=== PATIENT | male | born 1985 | race Caucasian/White ===

== ENCOUNTER → 2018-11-21 11:09 | Outpatient (CLI) | payer OTHER, SELFPAY ==
--- NOTE | 2018-11-21 | DI.RAD.S_ITS ---
PROCEDURE: FL SHOULDER INJECTION MR/CT LT INDICATIONS: PAIN IN LEFT SHOULDER TECHNIQUE: The indications, alternatives, benefits, risks, and complications of the procedure were explained to the patient. Written informed consent was obtained and placed in the chart. The shoulder was examined fluoroscopically and a site for needle placement chosen for entry into the glenohumeral joint from an anterior approach. The skin was prepped and draped in a sterile fashion, and 1% lidocaine infiltrated from skin down to joint capsule. A spinal needle was inserted into the glenohumeral joint, and a small amount of iodinated contrast media injected to confirm intra-articular placement of the needle tip. This was followed by approximately 12 mL dilute solution of a gadolinium containing MR contrast agent. The needle was removed and a dressing was applied. The patient was given postprocedural instructions and sent to the MR suite for MR imaging. FINDINGS: A single fluoroscopic spot image demonstrates intra-articular location of injected iodinated contrast. IMPRESSION: Successful fluoroscopically guided administration of dilute Gadolinium solution into the shoulder joint for MR arthrogram. Dictated by: Galdino Pabon M.D. on 11/21/2018 at 13:30 Approved by: Galdino Pabon M.D. on 11/21/2018 at 13:31
--- NOTE | 2018-11-21 | DI.MRI.S_ITS ---
PROCEDURE: MR SHOULDER LT W CON INDICATIONS: PAIN IN LEFT SHOULDER TECHNIQUE: After the administration of 12 mL of dilute intra-articular Gadolinium contrast, oblique coronal T1 and T2 spin echo with fat saturation, oblique sagittal T1 spin echo with and without fat saturation, oblique sagittal T2 fast spin echo with fat saturation, axial T1 spin echo with fat saturation through the shoulder. COMPARISON: None. FINDINGS: Image quality: Excellent. Rotator cuff: Tendinosis and low-grade articular surface partial-thickness tear involving distal supraspinatus near its insertion on the humeral head extending to musculotendinous junction. Tendinosis and low-grade bursal surface partial-thickness involving distal infraspinatus at its insertion on the humeral head extending to musculotendinous junction is noted. Distal subscapularis tendon is intact. No full-thickness rotator cuff tendon rupture. No significant rotator cuff muscle atrophy on sagittal images. Bones and bursae: No bone marrow contusions or fractures. No acromioclavicular joint degeneration. The acromion demonstrates conventional anatomy, without an os acromiale. Capsule and soft tissues: There is contour irregularity in contrast extension involving inferior posterior labrum at 6 to 7:00 position suggestive of focal posterior-inferior labral tear. Superior labrum is intact. The glenohumeral ligaments appear intact. The long head of the biceps tendon demonstrates normal location and morphology. The rotator interval appears normal, without fibrosis. The coracohumeral ligament is of normal thickness. No intra-articular bodies. IMPRESSION: 1. Finding is suggestive of focal posterior-inferior labral tear at 6 to 7:00 position. 2. Tendinosis and low-grade articular surface partial-thickness tear involving distal supraspinatus extending to musculotendinous junction. Tendinosis and low-grade bursal surface partial-thickness involving distal infraspinatus at its insertion on the humeral head extending to musculotendinous junction. No full-thickness rotator cuff tendon rupture. Dictated by: Sabino Raymond M.D. on 11/21/2018 at 13:09 Approved by: Sabino Raymond M.D. on 11/21/2018 at 13:22
== END ==
PROVIDERS: Visit Provider Family Medicine
DX: M25.512 Pain in left shoulder (principal)
CPT/HCPCS: 23350; 73222; 77002

== ENCOUNTER → 2021-12-17 13:13 | Outpatient (CLI) | payer OTHER, SELFPAY | DX: M47.892 Other spondylosis, cervical region (principal); Z53.20 Procedure and treatment not carried out because of patient's decision for unspecified reasons ==

== ENCOUNTER → 2021-12-25 10:49 | Outpatient (CLI) | payer OTHER, SELFPAY ==
--- NOTE | 2021-12-25 | DI.MRI.S_ITS ---
PROCEDURE: MR CERVICAL SPINE WO CON INDICATIONS: Other spondylosis, cervical region. Pain. TECHNIQUE: Noncontrast sagittal T1 spin echo and T2 fast spin echo, sagittal STIR, foraminal oblique sagittal T2 fast spin echo, and axial gradient echo or T2 fast spin echo through the cervical spine. COMPARISON: None. FINDINGS: Image quality: Excellent. Alignment and Curvature: There is normal bony alignment. Bone Marrow: Marrow demonstrates normal overall signal. Spinal Cord: Visualized spinal cord has normal size and signal. No cerebellar tonsillar herniation. Paraspinous Soft Tissues: No paravertebral masses. Prevertebral soft tissues are normal in thickness. C2-C3: Normal appearance. C3-C4: Normal appearance. C4-C5: Disc height is preserved. Small posterior disc osteophyte complex results in mild central stenosis. No foraminal stenosis. C5-C6: Disc height is preserved. Small posterior disc osteophyte complex results in mild central stenosis. No foraminal stenosis. C6-C7: Normal appearance. C7-T1: Normal appearance. 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 on 12/25/2021 at 16:25
== END ==
DX: M47.892 Other spondylosis, cervical region (principal); M48.02 Spinal stenosis, cervical region
CPT/HCPCS: 72141

== ENCOUNTER → 2022-12-30 12:26 | Outpatient (CLI) | payer OTHER, SELFPAY ==
--- NOTE | 2022-12-30 12:29 | DI.MRI.S_ITS ---
PROCEDURE: MR CERVICAL SPINE WO CON INDICATIONS: Radiculopathy, cervical region TECHNIQUE: Noncontrast sagittal T1 spin echo and T2 fast spin echo, sagittal STIR, foraminal oblique sagittal T2 fast spin echo, and axial gradient echo or T2 fast spin echo through the cervical spine. COMPARISON: [facility], , MR CERVICAL SPINE WO CON, 12/25/2021, 11:33. FINDINGS: Normal cervical spine vertebral body height and alignment. No suspicious focal marrow signal abnormality or bone marrow edema. Normal morphology and signal intensity of the cervical cord. There is no syrinx. Prevertebral and paraspinous soft tissues are normal. No spinal canal stenosis at any level in the cervical spine. No significant degenerative changes identified. IMPRESSION: Normal cervical spine MRI. Dictated by: Dick Romo M.D. on 12/30/2022 at 21:39 Approved by: Dick Romo M.D. on 12/30/2022 at 21:40
== END ==
PROVIDERS: PCP General Practice; Referring Provider General Practice; Visit Provider General Practice
DX: M54.12 Radiculopathy, cervical region (principal); G47.33 Obstructive sleep apnea (adult) (pediatric)
CPT/HCPCS: 72141

== ENCOUNTER → 2023-02-01 09:16 | Outpatient (CLI) | payer OTHER, SELFPAY | PROVIDERS: Family Provider General Practice; PCP General Practice; Referring Provider General Practice; Visit Provider General Practice | DX: M54.12 Radiculopathy, cervical region (principal) | CPT/HCPCS: 95885; 95886; 95912 ==